=== PATIENT | female | born 1955 | race Caucasian/White ===

== ENCOUNTER 2023-05-27 05:10 | Day surgery (SDC) | payer OTHER ==
[2023-05-26 08:42] VITALS: BMI 31.6
[2023-05-27 11:33] VITALS: TEMP 97.8
[2023-05-27 12:08] VITALS: PULSE 53
[2023-05-27 12:09] VITALS: BP 112/58; RESP 19
== END 2023-05-27 12:53 | disposition home or self-care (01) ==
LOC: JASU-ENDO 05:10
PROVIDERS: ATTEND Internal Medicine Gastroenterology
PROC: 0DB68ZX Excision of Stomach, Via Natural or Artificial Opening Endoscopic, Diagnostic (ICD-10-PCS; principal; 2023-05-27 11:15)
DX: K29.50 Unspecified chronic gastritis without bleeding (principal)
CPT/HCPCS: 88305-TC; 88342-TC